=== PATIENT | female | born 1955 | race Caucasian/White ===

== ENCOUNTER 2018-05-24 17:42 | Inpatient (IN) | payer OTHER ==
[2018-05-24 17:42] VITALS: BMI 44.6
[2018-05-24 18:58] LABS: BASO # 0.1 K/uL (0.0-0.2); BASO % 0.8 % (0.0-2.0); EOS # 0.2 K/uL (0.0-0.7); EOS % 1.4 % (0.0-4.0); HEMOGLOBIN 14.9 g/dL (11.0-16.0); LYMPH # 3.6 K/uL (1.0-4.3); LYMPH % 26.5 % (20.0-40.0); MEAN CELL VOLUME 83.1 fL (81.0-99.0); MEAN CORPUSCULAR HEMOGLOBIN 26.9 pg (27.0-31.0); MEAN CORPUSCULAR HGB CONC 32.3 g/dL (33.0-37.0); MEAN PLATELET VOLUME 8.9 fL (7.2-11.7); MONO # 0.9 K/uL (0.0-0.8); MONO % 6.9 % (0.0-10.0); NEUT # 8.8 K/uL (1.8-7.0); NEUT % 64.4 % (50.0-75.0); NRBC % 0.2 % (0.0-2.0); RBC 5.54 Mil/uL (3.80-5.20); RED CELL DISTRIBUTION WIDTH 13.8 % (11.5-14.5); WHITE BLOOD COUNT 13.7 K/uL (4.8-10.8)
--- NOTE | 2018-05-24 19:03 | CP.PCM.HP ---
History of Present Illness - History of Present Illness History of Present Illness: Chief complaint: Shortness of breath and the chest tightness. HPI: 62-year-old female with a history of sleep apnea, recurrent sinusitis, history of colon polyp, hypertension, diabetes, noncompliance, obesity came to the emergency room with progressively worsening SOB. Patient came to my office 2 days ago at that time she was having severe shortness of breath, and also associated with chest tightness and pain radiating to the left side, and hypoxia. I advised the patient to go to the emergency room because of the acuteness of the disease. Patient also noted to have a uncontrolled diabetes her hemoglobin A1c 10.3, patient not following the recommendation properly, noncompliance with medications. She is afraid of taking sometimes medications. Patient came to the emergency room with a similar symptoms, shortness of breath and associated left arm discomfort. She is also having bilateral leg swelling, cough tenderness bilaterally present. Pain present. Difficult time in walking. Her functional capacity is limited because of the shortness of breath. Past medical history: Obstructive sleep apnea, recurrent sinusitis, colon polyp, hypertension, diabetes, hypercholesterolemia, obesity. Allergy to: Penicillin, Xanax and Motrin. Family history noncontributory Surgical history: None social history: Nonsmoker, nonalcoholic.working full-time Family history: Noncontributory Review of system: Patient has no headache. dental procedure which was done recently for a dental abscess. Chest discomfort, chest pain, shortness of breath, and tight chest. Cough noted. Abdominal discomfort negative. No leg swelling c/o of leg pain bilaterally especially in the calf region On examination: Vital signs noted. Normal. Chest good air entry bilateral wheezing noted Regular heart sound. Nontender abdomen. Pedal edema 1+ bilaterally noted Labs currently pending. EKG nonspecific. Assessment and plan: 62-year-old female with a history of diabetes, hypertension, hypercholesteremia, obesity, obesity hypoventilation, sleep apnea, uncontrolled diabetes. Patient having hemoglobin A1c 10 point now recently. Sleep apnea, on CPAP. Patient had a significant hypoxia. Now came to the emergency room with increasing shortness of breath, and hypoxia, underlying DVT, PE cannot be ruled out. Recommended CT angiogram. Cardiology evaluation. Will get the nuclear bstudy, stress test, echocardiogram, cardiac workup and cardiology evaluation. DVT GI prophylaxis and will follow-up the patient Present on Admission - Present on Admission Any Indicators Present on Admission: No History of DVT/PE: No History of Uncontrolled Diabetes: No Urinary Catheter: No Decubitus Ulcer Present: No Past Patient History - Infectious Disease Hx of Infectious Diseases: None - Past Medical History & Family History Past Medical History?: Yes - Past Social History Smoking Status: Former Smoker - CARDIAC Hx Cardiac Disorders: Yes Hx Hypertension: Yes (DOESN'T TAKE MEDS) - PULMONARY Hx Respiratory Disorders: Yes Hx Asthma: Yes (NO CURRENT MEDS) Hx Sleep Apnea: Yes (C-PAP) - NEUROLOGICAL Hx Neurological Disorder: Yes (NUMBNESS HANDS/POST CARPAL TUNNEL) - HEENT Hx HEENT Problems: Yes Other/Comment: GLASSES - ENDOCRINE/METABOLIC Hx Endocrine Disorders: Yes Hx Diabetes Mellitus Type 2: Yes (CONTROLLED BY DIET) - HEMATOLOGICAL/ONCOLOGICAL Hx Blood Disorders: Yes Hx Anemia: Yes - MUSCULOSKELETAL/RHEUMATOLOGICAL Hx Musculoskeletal Disorders: Yes Hx Back Pain: Yes (LUMBAR) - GASTROINTESTINAL Hx Gastrointestinal Disorders: Yes Hx Ulcer: Yes - GENITOURINARY/GYNECOLOGICAL Hx Genitourinary Disorders: Yes Hx Postmenopausal Bleeding: Yes - PSYCHIATRIC Hx Substance Use: No - SURGICAL HISTORY Hx Surgeries: Yes Hx Section: Yes Other/Comment: CARPAL TUNNER RELEASE - ANESTHESIA Hx Anesthesia: Yes Hx Anesthesia Reactions: No Meds Allergies/Adverse Reactions: Allergies Allergy/AdvReac Type Severity Reaction Status Date / Time alprazolam [From Xanax] Allergy Verified 05/24/18 17:48 ibuprofen [From Motrin] Allergy Verified 05/24/18 17:48 Penicillins Allergy Verified 05/24/18 17:48 Results - Vital Signs Recent Vital Signs: Last Vital Signs Temp 98.9 F 05/24/18 17:45 Pulse 110 H 05/24/18 17:45 Resp 18 05/24/18 17:45 BP 157/97 H 05/24/18 17:45 Pulse Ox 95 05/24/18 17:45 - Labs Result Diagrams: 05/26/18 08:27 05/26/18 08:27 Labs: Laboratory Results - last 24 hr 05/24/18 18:55 WBC 13.7 H RBC 5.54 H Hgb 14.9 Hct 46.1 MCV 83.1 MCH 26.9 L MCHC 32.3 L RDW 13.8 Plt Count 281 MPV 8.9 Neut % (Auto) 64.4 Lymph % (Auto) 26.5 Carroll % (Auto) 6.9 Eos % (Auto) 1.4 Baso % (Auto) 0.8 Neut # (Auto) 8.8 H Lymph # (Auto) 3.6 Carroll # (Auto) 0.9 H Eos # (Auto) 0.2 Baso # (Auto) 0.1
[2018-05-24 19:05] LABS: INR 1.1; PROTHROMBIN TIME 12.2 SECONDS (9.7-12.2)
[2018-05-24 19:12] LABS: ALB/GLOB RATIO 1.1 (1.0-2.1); ALBUMIN 4.3 g/dL (3.5-5.0); BLOOD UREA NITROGEN 20 mg/dL (7-17); CALCIUM 9.6 mg/dl (8.6-10.4); GFR NON-AFRICAN AMERICAN > 60
[2018-05-24 19:14] LABS: ALT/SGPT 48 U/L (9-52); AST/SGOT 46 U/L (14-36)
[2018-05-24 19:25] LABS: B-TYPE NATRIURETIC PEPTIDE 39.7 pg/mL (0-900)
--- NOTE | 2018-05-24 20:05 | C.PDOC ---
History Of Present Illness 62 y/o female, with history of hypertension and diabetes, was sent here by PCP Dr. Rm, because she is noncompliant with her blood pressure medications and was sent for evaluation for chest pain. Patient states she has had one month of intermittent pain and tightness in the center of her chest that worsens when breathing. States she also started having sharp pain on either side of breast for the past 2 weeks. Denies SOB, fever, cough, chills, recent travel, chronic swelling in bilateral extremities, orthopnea, N/V/D, abdominal pain, or any current pain. Time Seen by Provider: 05/24/18 18:48 Chief Complaint (Nursing): Medical Clearance History Per: Patient History/Exam Limitations: no limitations Onset/Duration Of Symptoms: Days Current Symptoms Are (Timing): Still Present Past Medical History Reviewed: Historical Data, Nursing Documentation, Vital Signs Vital Signs: Last Vital Signs Temp 98.9 F 05/24/18 17:45 Pulse 110 H 05/24/18 17:45 Resp 18 05/24/18 17:45 BP 157/97 H 05/24/18 17:45 Pulse Ox 95 05/24/18 17:45 - Medical History PMH: Anemia, Asthma (NO CURRENT MEDS), HTN (DOESN'T TAKE MEDS), Sleep Apnea (C- PAP) Surgical History: Endoscopy - [facility] Procedures D & C NEC (02/10/14) Family History: States: No Known Family Hx - Social History Hx Tobacco Use: No Hx Alcohol Use: Yes Hx Substance Use: No - Immunization History Hx Tetanus Toxoid Vaccination: No Hx Influenza Vaccination: No Hx Pneumococcal Vaccination: No Review Of Systems Except As Marked, All Systems Reviewed And Found Negative. Constitutional: Negative for: Fever, Chills Cardiovascular: Positive for: Chest Pain. Negative for: Orthopnea Respiratory: Negative for: Cough, Shortness of Breath Gastrointestinal: Negative for: Nausea, Vomiting, Abdominal Pain, Diarrhea Musculoskeletal: Positive for: Other (Breast pain) Physical Exam - Physical Exam Appears: Non-toxic, No Acute Distress, Other (Comfortable) Skin: Warm, Dry, No Jaundice Head: Atraumatic, Normacephalic Eye(s): bilateral: Normal Inspection, PERRL, EOMI Ear(s): Bilateral: Normal Nose: Normal Oral Mucosa: Moist Neck: Normal ROM, Supple Cardiovascular: Rhythm Regular, No Murmur Respiratory: No Rales, No Rhonchi, No Wheezing, Other (Normal inspiratory effort, Lungs clear to auscultation) Gastrointestinal/Abdominal: Soft, No Tenderness Extremity: Bilateral: Atraumatic, Normal Color And Temperature, Normal ROM, Other (Chronic bilateral nonpitting edema) Neurological/Psych: Oriented x3, Normal Speech Gait: Steady ED Course And Treatment - Laboratory Results Result Diagrams: 05/24/18 18:55 05/24/18 18:55 ECG Rhythm: Sinus Rhythm (Normal) Interpretation Of ECG: Normal intervals. Left axis deviation. No ST elevations or depressions. Rate From EC O2 Sat by Pulse Oximetry: 95 (RA) Pulse Ox Interpretation: Normal - CT Scan/US CT chest Other Rad Studies (CT/US): Read By Radiologist, Radiology Report Reviewed CT/US Interpretation: Impression: 1. Limited study, with poor contrast bolus within the pulmonary arteries. The central pulmonary arteries are free of embolism. However, the peripheral arterial structures cannot be evaluated on this study. Follow-up assessment as clinically indicated. 2. 0.6 x 0.7 cm nodule in the right middle lobe. By Fleischner Society protocol recommendations, a follow-up CT in 6-12 months followed by a CT at 18-24 months is suggested. 3. Interstitial changes in the lung bases bilaterally, most consistent with atelectasis, although infiltrate cannot completely be excluded. 4. Bibasilar confluent opacities may represent confluent fibrosis vs developing pneumonia. Medical Decision Making Medical Decision Making: Plan: --CT Chest --EKG --Bloodwork CTA ordered to rule out PE. 21:45 -- Spoke with Dr. Rm who asked for CTA results and agrees to admit patient. Dr. Rm states he spoke with book coverer Dr. Triana for stress test in the morning. 22:45 -- Spoke with Dr. Rm about CT negative results for PE. Dr. Rm stated he will determine whether to change patient's treatment. Disposition Counseled Patient/Family Regarding: Studies Performed, Diagnosis - Disposition Disposition: HOSPITALIZED Disposition Time: 21:45 Condition: STABLE - Clinical Impression Clinical Impression: Chest pain, Hyperglycemia - Scribe Statement The provider has reviewed the documentation as recorded by the Jessica Fontanez Provider Attestation: All medical record entries made by the Scribe were at my direction and personally dictated by me. I have reviewed the chart and agree that the record accurately reflects my personal performance of the history, physical exam, medical decision making, and the department course for this patient. I have also personally directed, reviewed, and agree with the discharge instructions and disposition.
[2018-05-24] MEDS ORDERED: Iodixanol 320 MG/ML 100 ML BOTTLE IV ONE (21:04)
[2018-05-24] MEDS ORDERED: Sodium Chloride 0.45% 1,000 ML IV SCH (21:45)
[2018-05-24] MEDS: (Novolin R) Insulin Human Regular 100 units/ml vial SC SCH (23:03)
[2018-05-24] MEDS ORDERED: Sodium Chloride 0.9% 1,000 ML ONE (23:10)
[2018-05-25] MEDS: (Novolin R) Insulin Human Regular 100 units/ml vial SC SCH ×4 (08:07→21:39)
[2018-05-25] MEDS ORDERED: Caffeine Citrated **INJ** 20 MG/ML IV ONE (09:05)
--- NOTE | 2018-05-25 09:36 | CT ---
Date of service: 05/24/2018 PROCEDURE: CT Chest with contrast (Pulmonary Angiogram) HISTORY: chest pain COMPARISON: Plain radiographs from 09/01/2015. TECHNIQUE: Axial computed tomography images were obtained of the chest in the pulmonary arterial phase of enhancement. Coronal and sagittal reformatted images were created and reviewed. Intravenous contrast dose: 100 mL Visipaque Radiation dose: Total exam DLP = 509.13 mGy-cm. This CT exam was performed using one or more of the following dose reduction techniques: Automated exposure control, adjustment of the mA and/or kV according to patient size, and/or use of iterative reconstruction technique. FINDINGS: PULMONARY ARTERIES: Nondiagnostic study for evaluation of pulmonary embolism due to missed bolus. AORTA: No acute findings. No thoracic aortic aneurysm. No aortic atherosclerotic calcification or mural plaque present. LUNGS: The lungs are clear. There is subsegmental atelectasis and mild interstitial fibrosis in the lower lobes. There is a 7 mm nodule in the right middle lobe (series 4, image 55). No mass or consolidation. There are no endobronchial lesions. PLEURAL SPACES: No effusion or pneumothorax. HEART: Unremarkable. No cardiomegaly. No significant pericardial effusion. LYMPH NODES: No lymphadenopathy. BONES, CHEST WALL: Within normal limits for the patient's age. No fracture or destructive lesion OTHER FINDINGS: Hepatosplenomegaly and fatty liver. Small sliding hiatal hernia. IMPRESSION: 1. Nondiagnostic study for evaluation of pulmonary embolism due to missed bolus. 2. 7 mm nodule in the right middle lobe. Follow-up CT scan in 6-12 month interval is recommended to assess stability. A preliminary report was provided by [facility].
[2018-05-25] MEDS: GlipiZIDE 10 mg SR Tab PO SCH (10:59)
[2018-05-25] MEDS ORDERED: Sodium Chloride 0.9% 1,000 ML IV ONE (16:10)
--- NOTE | 2018-05-26 05:35 | CARD ---
APPROVED REPORT Date of service: 05/25/2018 Protocol: LEXISCAN Test Type: LEXISCAN STRESS Test Indications: CHEST PAIN Medications: LIST Target HR: 160 bpm Resting ECG: normal Resting Heart Rate: 83 bpm Resting Blood Pressure: 134/80mmHg submaximum (85%): 136 bpm TEST SUMMARY PREINFSNHYPERV.02:[id number]/80.0. INFUSIONDOSE 100:[id number]/80.3. MNLDAESIU07:[id number]/80.2. PROCEDURE Pharmacologic stress testing was performed using 0.4mg per 5ml of regadenoson given intravenously over 7-10 seconds. POST EXERCISE Reason for Termination: Protocol Completed Target HR: No Max HR: 86 bpm 66% of Maximum Predicted HR: 160 bpm Exercise duration: 00:30 min:sec, 0 Stage Exercise capacity: 1.0METs Max Blood Pressure: 134/80mmHg Blood Pressure response to exercise: normal resting BP - appropriate response Heart Rate response to exercise: appropriate Chest Pain: No, none Angina index: 0 Arrhythmia: No, none ST Change: No, none Deviation: 0 mm INTERPRETATION Stress EKG Conclusion: NEGATIVE LEXISCAN STRESS TEST NORMAL BP RESPONSE TO LEXISCAN NUCLEAR STUDIES TO BE READ SEPARATELY EXAM: Myocardial Perfusion STRESS/REST Imaging Protocol The imaging protocol used to acquire images was Stress Tc-99m/rest Tc-99m 1 day Rest Spect myocardial perfusion imaging was performed in supine position 45 minutes following the injection of 25.0 mCi of Tc-99 Myoview. Gated Stress Spect was performed 45 minutes after intravenous 9.7 mCi Tc-99 Myoview injection. The images were gated to evaluate regional wall motion and calculate ventricular ejection fraction.Images were reconstructed using backfilter projection method in short horizontal and verticle long axis. Spect slices were generated. RESTING DATA EDV91.60xrGB9.30L/min ESV23.00mlMyocardial Jfps849.00g Av. Heart Rate78.00bpm EF75.00% STRESS DATA HWE776.06tvNX3.20L/min ESV35.00mlMyocardial Jezh600.00g EF65.00% Regional WT score at stress:2.00 Regional WM score at stress:0.00 Summed WT score at stress:4.00 Av. Heart Rate79.00bpmSummed WM score at stress:0.00 LV Perf. Quant 17 Seg. SSS15.00 17 Seg. SRS7.00 17 Seg. SDS8.00 Stress Defect Extent (% LAD)44.40Rest Defect Extent (% LAD)8.80Rev. Defect Extent (% LAD)28.80 Stress Defect Extent (% LCX)61.30Rest Defect Extent (% LCX)42.50Rev. Defect Extent (% LCX)50.00 Stress Defect Extent (% RCA)0.00Rest Defect Extent (% RCA)0.00Rev. Defect Extent (% RCA)0.00 Stress Defect Extent (% WILLIAM)35.40Rest Defect Extent (% WILLIAM)13.30Rev. Defect Extent (% WILLIAM)24.10 Other Information Quality:Good IMPRESSION Abnormal Myocardial Perfusion exercise stress study Left Ventricle LV Function:Left ventricle systolic function is normal. The Ejection Fraction is >55%. Conclusion 1. Large anterior wall stress induced perfusion defect. Abnormal stress test. Stress induced ischemia in the LAD territary 2. recommend cardiac cath
--- NOTE | 2018-05-26 06:05 | CP.PCM.CON ---
History of Present Illness - History of Present Illness History of Present Illness: Patient seen and evaluated Cardiac symptoms and risk factors Abnormal stress test For Cath in am Past Patient History - Infectious Disease Hx of Infectious Diseases: None - Past Medical History & Family History Past Medical History?: Yes - Past Social History Smoking Status: Former Smoker - CARDIAC Hx Hypertension: Yes (DOESN'T TAKE MEDS) - PULMONARY Hx Asthma: Yes (NO CURRENT MEDS) Hx Sleep Apnea: Yes (C-PAP) - NEUROLOGICAL Hx Neurological Disorder: Yes (NUMBNESS HANDS/POST CARPAL TUNNEL) - HEENT Hx HEENT Problems: Yes Other/Comment: GLASSES - ENDOCRINE/METABOLIC Hx Endocrine Disorders: Yes Hx Diabetes Mellitus Type 2: Yes (CONTROLLED BY DIET) - HEMATOLOGICAL/ONCOLOGICAL Hx Anemia: Yes - MUSCULOSKELETAL/RHEUMATOLOGICAL Hx Musculoskeletal Disorders: Yes Hx Back Pain: Yes (LUMBAR) Hx Falls: No - GASTROINTESTINAL Hx Gastrointestinal Disorders: Yes Hx Ulcer: Yes - GENITOURINARY/GYNECOLOGICAL Hx Genitourinary Disorders: Yes Hx Postmenopausal Bleeding: Yes - PSYCHIATRIC Hx Substance Use: No - SURGICAL HISTORY Hx Surgeries: Yes Hx Section: Yes Other/Comment: CARPAL TUNNER RELEASE - ANESTHESIA Hx Anesthesia: Yes Hx Anesthesia Reactions: No Hx Malignant Hyperthermia: No Has any member of the family had a problem w/ anesthesia?: No Meds Allergies/Adverse Reactions: Allergies Allergy/AdvReac Type Severity Reaction Status Date / Time alprazolam [From Xanax] Allergy Verified 05/24/18 17:48 ibuprofen [From Motrin] Allergy Verified 05/24/18 17:48 Penicillins Allergy Verified 05/24/18 17:48 - Medications Medications: Current Medications Acetaminophen (Tylenol 325mg Tab) 650 mg PO Q6 PRN PRN Reason: Headache Last Admin: 05/25/18 11:39 Dose: 650 mg Clindamycin HCl (Cleocin) 150 mg PO Q6 [facility]; Protocol Last Admin: 05/26/18 05:15 Dose: Not Given Glipizide (Glucotrol Xl) 10 mg PO DAILY [facility] Last Admin: 05/25/18 10:59 Dose: 10 mg Heparin Sodium (Porcine) (Heparin) 5,000 units SC Q8 [facility] Last Admin: 05/26/18 05:15 Dose: Not Given Hydrochlorothiazide (Microzide) 12.5 mg PO DAILY [facility] Last Admin: 05/25/18 16:13 Dose: 12.5 mg Sodium Chloride (Sodium Chloride 0.45%) 1,000 mls @ 50 mls/hr IV .Q20H [facility] Last Admin: 05/24/18 23:19 Dose: 50 mls/hr Sodium Chloride (Sodium Chloride 0.9%) 1,000 mls @ 70 mls/hr IV .[id number] [facility]: 05/26/18 06:27 Last Admin: 05/25/18 17:53 Dose: Not Given Insulin Human Regular (Novolin R) 0 unit SC ACHS [facility]; Protocol Last Admin: 05/25/18 21:39 Dose: Not Given Losartan Potassium (Cozaar) 50 mg PO DAILY [facility] Last Admin: 05/25/18 16:13 Dose: 50 mg Results - Vital Signs Recent Vital Signs: Last Vital Signs Temp 98.1 F 05/26/18 00:00 Pulse 75 05/26/18 00:05 Resp 20 05/26/18 00:00 BP 145/89 05/26/18 00:00 Pulse Ox 96 05/26/18 00:00 - Labs Result Diagrams: 05/24/18 18:55 05/24/18 18:55 Labs: Laboratory Results - last 24 hr 05/24/18 05/25/18 05/25/18 22:50 07:54 11:07 POC Glucose (mg/dL) 276 H 259 H 276 H 05/25/18 05/25/18 16:18 20:58 POC Glucose (mg/dL) 196 H 222 H
[2018-05-26] MEDS: (Novolin R) Insulin Human Regular 100 units/ml vial SC SCH ×2 (07:53→13:34)
[2018-05-26] MEDS ORDERED: Midazolam 2 MG/2 ML VIAL ONE (08:37)
[2018-05-26] MEDS ORDERED: Verapamil 2 ML ONE (08:37)
[2018-05-26] MEDS ORDERED: Lidocaine 2% MPF (5 ml) Inj ONE (08:37)
[2018-05-26] MEDS ORDERED: Iodixanol 320 MG/ML 200 ML BOTTLE IV ONE (08:38)
[2018-05-26] MEDS ORDERED: Nitroglycerin 50mg in D5W 50 MG/250 ML BOTTLE IV ONE (08:38)
[2018-05-26 08:39] LABS: BASO # 0.1 K/uL (0.0-0.2); BASO % 0.6 % (0.0-2.0); EOS # 0.2 K/uL (0.0-0.7); EOS % 2.5 % (0.0-4.0); HEMOGLOBIN 14.4 g/dL (11.0-16.0); LYMPH # 2.4 K/uL (1.0-4.3); LYMPH % 26.7 % (20.0-40.0); MEAN CELL VOLUME 83.8 fL (81.0-99.0); MEAN CORPUSCULAR HEMOGLOBIN 27.6 pg (27.0-31.0); MEAN PLATELET VOLUME 8.8 fL (7.2-11.7); MONO # 0.7 K/uL (0.0-0.8); NEUT # 5.6 K/uL (1.8-7.0); NEUT % 62.2 % (50.0-75.0); NRBC % 0.1 % (0.0-2.0); RBC 5.23 Mil/uL (3.80-5.20); RED CELL DISTRIBUTION WIDTH 13.4 % (11.5-14.5)
--- NOTE | 2018-05-26 09:16 | CP.PCM.PN ---
Subjective - Date & Time of Evaluation Date of Evaluation: 05/26/18 Time of Evaluation: 09:13 - Subjective Subjective: Patient s/p Cath 1. L Main: Patent 2. LAD/Diags: distal diffuse 50% diabetic pattern narrowing 3. L Cx/OM: Patent 4. RCA: Dominant and patent. ANITHA 2 flow 5. EF: 60%, EDP 18, No Diabetic pattern Non Obstructive CAD Recommend ASA, Statins, B Blockers, MIRANDA I Diet and exercise Good Diabetic control Weight reduction Objective - Vital Signs/Intake and Output Vital Signs (last 24 hours): Temp Pulse Resp BP Pulse Ox 98.1 F 75 20 145/89 96 05/26/18 00:00 05/26/18 00:05 05/26/18 00:00 05/26/18 00:00 05/26/18 00:00 Intake and Output: 05/26/18 05/26/18 06:59 18:59 Intake Total 50 Balance 50 - Medications Medications: Current Medications Acetaminophen (Tylenol 325mg Tab) 650 mg PO Q6 PRN PRN Reason: Headache Last Admin: 05/25/18 11:39 Dose: 650 mg Clindamycin HCl (Cleocin) 150 mg PO Q6 [facility]; Protocol Last Admin: 05/26/18 05:15 Dose: Not Given Glipizide (Glucotrol Xl) 10 mg PO DAILY [facility] Last Admin: 05/25/18 10:59 Dose: 10 mg Heparin Sodium (Porcine) (Heparin) 5,000 units SC Q8 [facility] Last Admin: 05/26/18 05:15 Dose: Not Given Hydrochlorothiazide (Microzide) 12.5 mg PO DAILY [facility] Last Admin: 05/25/18 16:13 Dose: 12.5 mg Sodium Chloride (Sodium Chloride 0.45%) 1,000 mls @ 50 mls/hr IV .Q20H [facility] Last Admin: 05/24/18 23:19 Dose: 50 mls/hr Insulin Human Regular (Novolin R) 0 unit SC ACHS [facility]; Protocol Last Admin: 05/26/18 07:53 Dose: Not Given Losartan Potassium (Cozaar) 50 mg PO DAILY [facility] Last Admin: 05/25/18 16:13 Dose: 50 mg - Labs Labs: 05/26/18 08:27 05/24/18 18:55 PT 12.2 SECONDS (9.7-12.2) 05/24/18 18:55 INR 1.1 05/24/18 18:55 APTT 38 SECONDS (21-34) H 05/24/18 18:55
[2018-05-26 09:33] LABS: ALB/GLOB RATIO 1.2 (1.0-2.1); ALBUMIN 4.1 g/dL (3.5-5.0); ALT/SGPT 38 U/L (9-52); AST/SGOT 34 U/L (14-36); BLOOD UREA NITROGEN 14 mg/dL (7-17); CALCIUM 9.3 mg/dl (8.6-10.4); GFR NON-AFRICAN AMERICAN > 60
[2018-05-26] MEDS ORDERED: Iohexol 350mg/ml 100 ML ONE (12:23)
--- NOTE | 2018-05-26 12:44 | CP.PCM.PN ---
Subjective - Date & Time of Evaluation Date of Evaluation: 05/25/18 Time of Evaluation: 12:42 - Subjective Subjective: Patient still having symptoms of chest tightness. Bilateral rib pain noted. Patient today underwent stress test. I spoke to the air hose coupler. Abnormal stress test, scheduled to have angiogram tomorrow. Vital signs stable. Blood pressure is noted to be stable. Elevated sugar noted. Will continue the current treatment. Objective - Vital Signs/Intake and Output Vital Signs (last 24 hours): Temp Pulse Resp BP Pulse Ox 98.1 F 75 20 145/89 96 05/26/18 00:00 05/26/18 00:05 05/26/18 00:00 05/26/18 00:00 05/26/18 00:00 Intake and Output: 05/26/18 05/26/18 06:59 18:59 Intake Total 50 Balance 50 - Medications Medications: Current Medications Acetaminophen (Tylenol 325mg Tab) 650 mg PO Q6 PRN PRN Reason: Headache Last Admin: 05/25/18 11:39 Dose: 650 mg Clindamycin HCl (Cleocin) 150 mg PO Q6 [facility]; Protocol Last Admin: 05/26/18 05:15 Dose: Not Given Clopidogrel Bisulfate (Plavix) 75 mg PO DAILY [facility] Glipizide (Glucotrol Xl) 10 mg PO DAILY [facility] Last Admin: 05/25/18 10:59 Dose: 10 mg Heparin Sodium (Porcine) (Heparin) 5,000 units SC Q8 [facility] Last Admin: 05/26/18 05:15 Dose: Not Given Hydrochlorothiazide (Microzide) 12.5 mg PO DAILY [facility] Last Admin: 05/25/18 16:13 Dose: 12.5 mg Sodium Chloride (Sodium Chloride 0.45%) 1,000 mls @ 50 mls/hr IV .Q20H [facility] Last Admin: 05/24/18 23:19 Dose: 50 mls/hr Insulin Human Regular (Novolin R) 0 unit SC ACHS [facility]; Protocol Last Admin: 05/26/18 07:53 Dose: Not Given Losartan Potassium (Cozaar) 50 mg PO DAILY [facility] Last Admin: 05/25/18 16:13 Dose: 50 mg Losartan Potassium (Cozaar) 25 mg PO DAILY [facility] Rosuvastatin Calcium (Crestor) 10 mg PO HS [facility] - Labs Labs: 05/26/18 08:27 05/26/18 08:27 PT 12.2 SECONDS (9.7-12.2) 05/24/18 18:55 INR 1.1 05/24/18 18:55 APTT 38 SECONDS (21-34) H 05/24/18 18:55
[2018-05-26 13:05] VITALS: BP 161/103; RESP 18; TEMP 97.9; O2SAT 95
[2018-05-26] MEDS: GlipiZIDE 10 mg SR Tab PO SCH (13:35)
--- NOTE | 2018-05-26 14:30 | CP.PCM.PN ---
Subjective - Date & Time of Evaluation Date of Evaluation: 05/26/18 Time of Evaluation: 14:30 - Subjective Subjective: PATIENT SEEN AND EXAMINED AT THE BEDSIDE Objective - Vital Signs/Intake and Output Vital Signs (last 24 hours): Temp Pulse Resp BP Pulse Ox 97.9 F 82 18 161/103 H 95 05/26/18 13:04 05/26/18 13:04 05/26/18 13:04 05/26/18 13:04 05/26/18 13:04 Intake and Output: 05/26/18 05/26/18 06:59 18:59 Intake Total 50 Balance 50 - Medications Medications: Current Medications Acetaminophen (Tylenol 325mg Tab) 650 mg PO Q6 PRN PRN Reason: Headache Last Admin: 05/25/18 11:39 Dose: 650 mg Clindamycin HCl (Cleocin) 150 mg PO Q6 [facility]; Protocol Last Admin: 05/26/18 13:32 Dose: 150 mg Clopidogrel Bisulfate (Plavix) 75 mg PO DAILY [facility] Last Admin: 05/26/18 13:32 Dose: 75 mg Glipizide (Glucotrol Xl) 10 mg PO DAILY [facility] Last Admin: 05/26/18 13:35 Dose: Not Given Heparin Sodium (Porcine) (Heparin) 5,000 units SC Q8 [facility] Last Admin: 05/26/18 13:33 Dose: 5,000 units Hydrochlorothiazide (Microzide) 12.5 mg PO DAILY [facility] Last Admin: 05/26/18 13:32 Dose: 12.5 mg Sodium Chloride (Sodium Chloride 0.45%) 1,000 mls @ 50 mls/hr IV .Q20H [facility] Last Admin: 05/24/18 23:19 Dose: 50 mls/hr Insulin Human Regular (Novolin R) 0 unit SC ACHS [facility]; Protocol Last Admin: 05/26/18 13:34 Dose: Not Given Losartan Potassium (Cozaar) 25 mg PO DAILY [facility] Rosuvastatin Calcium (Crestor) 10 mg PO HS [facility] - Labs Labs: 05/26/18 08:27 05/26/18 08:27 PT 12.2 SECONDS (9.7-12.2) 05/24/18 18:55 INR 1.1 05/24/18 18:55 APTT 38 SECONDS (21-34) H 05/24/18 18:55 Assessment and Plan - Assessment and Plan (Free Text) Assessment: FOLLOW UP WITH DR REBOLLAR IN HIS OFFICE ----CALL FOR APPOINTMENT CONTINUE HOME MEDICATION NEW PRESCRIPTION GIVEN PLAVIX 75 MG PO DAILY METOPROLOL 25 MG PO DAILY [facility] TOLER[facility] CALL DR REBOLLAR OR GO TO THE EMERGENCY ROOM IF SYMPTOM RETURN OR WORSENING
[2018-05-26 14:49] VITALS: PULSE 94
--- NOTE | 2018-05-26 18:57 | CP.PCM.DIS ---
Provider - Provider Date of Admission: 05/25/18 16:13 Attending physician: Nettie Rm MD Time Spent in preparation of Discharge (in minutes): 45 Hospital Course - Lab Results Lab Results: Most Recent Lab Values WBC 9.0 K/uL (4.8-10.8) 05/26/18 08:27 RBC 5.23 Mil/uL (3.80-5.20) H 05/26/18 08: Hgb 14.4 g/dL (11.0-16.0) 05/26/18 08: Hct 43.8 % (34.0-47.0) 05/26/18 08: MCV 83.8 fL (81.0-99.0) 05/26/18 08: MCH 27.6 pg (27.0-31.0) 05/26/18 08: MCHC 33.0 g/dL (33.0-37.0) 05/26/18 08: RDW 13.4 % (11.5-14.5) 05/26/18 08: Plt Count 240 K/uL (130-400) 05/26/18 08: MPV 8.8 fL (7.2-11.7) 05/26/18 08: Neut % (Auto) 62.2 % (50.0-75.0) 05/26/18 08: Lymph % (Auto) 26.7 % (20.0-40.0) 05/26/18 08:27 Jennings % (Auto) 8.0 % (0.0-10.0) 05/26/18 08: Eos % (Auto) 2.5 % (0.0-4.0) 05/26/18 08: Baso % (Auto) 0.6 % (0.0-2.0) 05/26/18 08: Neut # (Auto) 5.6 K/uL (1.8-7.0) 05/26/18 08:27 Lymph # (Auto) 2.4 K/uL (1.0-4.3) 05/26/18 08:27 Jennings # (Auto) 0.7 K/uL (0.0-0.8) 05/26/18 08:27 Eos # (Auto) 0.2 K/uL (0.0-0.7) 05/26/18 08:27 Baso # (Auto) 0.1 K/uL (0.0-0.2) 05/26/18 08:27 PT 12.2 SECONDS (9.7-12.2) 05/24/18 18:55 INR 1.1 05/24/18 18:55 APTT 38 SECONDS (21-34) H 05/24/18 18:55 Sodium 138 mmol/L (132-148) 05/26/18 08:27 Potassium 4.5 mmol/L (3.6-5.2) 05/26/18 08:27 Chloride 97 mmol/L (98-107) L 05/26/18 08:27 Carbon Dioxide 31 mmol/L (22-30) H 05/26/18 08:27 Anion Gap 14 (10-20) 05/26/18 08:27 BUN 14 mg/dL (7-17) 05/26/18 08:27 Creatinine 0.7 mg/dL (0.7-1.2) 05/26/18 08:27 Est GFR ( Amer) > 60 05/26/18 08:27 Est GFR (Non-Af Amer) > 60 05/26/18 08:27 POC Glucose (mg/dL) 132 mg/dL (65-110) H 05/26/18 13:33 Random Glucose 251 mg/dL (65-105) H 05/26/18 08:27 Calcium 9.3 mg/dl (8.6-10.4) 05/26/18 08:27 Total Bilirubin 0.6 mg/dL (0.2-1.3) 05/26/18 08:27 AST 34 U/L (14-36) 05/26/18 08:27 ALT 38 U/L (9-52) 05/26/18 08:27 Alkaline Phosphatase 94 U/L (38-126) 05/26/18 08:27 Troponin I < 0.0120 ng/mL (0.00-0.120) 05/24/18 18:55 NT-Pro-B Natriuret Pep 39.7 pg/mL (0-900) 05/24/18 18:55 Total Protein 7.6 g/dL (6.3-8.3) 05/26/18 08:27 Albumin 4.1 g/dL (3.5-5.0) 05/26/18 08:27 Globulin 3.5 gm/dL (2.2-3.9) 05/26/18 08:27 Albumin/Globulin Ratio 1.2 (1.0-2.1) 05/26/18 08:27 - Hospital Course Hospital Course: Chief complaint: Shortness of breath and the chest tightness. HPI: 62-year-old female with a history of sleep apnea, recurrent sinusitis, history of colon polyp, hypertension, diabetes, noncompliance, obesity came to the emergency room with progressively worsening SOB. Patient came to my office 2 days ago at that time she was having severe shortness of breath, and also associated with chest tightness and pain radiating to the left side, and hypoxia. I advised the patient to go to the emergency room because of the acuteness of the disease. Patient also noted to have a uncontrolled diabetes her hemoglobin A1c 10.3, patient not following the recommendation properly, noncompliance with medications. She is afraid of taking sometimes medications. Patient came to the emergency room with a similar symptoms, shortness of breath and associated left arm discomfort. She is also having bilateral leg swelling, cough tenderness bilaterally present. Pain present. Difficult time in walking. Her functional capacity is limited because of the shortness of breath. Past medical history: Obstructive sleep apnea, recurrent sinusitis, colon polyp, hypertension, diabetes, hypercholesterolemia, obesity. Allergy to: Penicillin, Xanax and Motrin. Family history noncontributory Surgical history: None social history: Nonsmoker, nonalcoholic.working full-time Family history: Noncontributory Review of system: Patient has no headache. dental procedure which was done recently for a dental abscess. Chest discomfort, chest pain, shortness of breath, and tight chest. Cough noted. Abdominal discomfort negative. No leg swelling c/o of leg pain bilaterally especially in the calf region On examination: Vital signs noted. Normal. Chest good air entry bilateral wheezing noted Regular heart sound. Nontender abdomen. Pedal edema 1+ bilaterally noted Labs currently pending. EKG nonspecific. Assessment and plan: 62-year-old female with a history of diabetes, hypertension, hypercholesteremia, obesity, obesity hypoventilation, sleep apnea, uncontrolled diabetes. Patient having hemoglobin A1c 10 point now recently. Sleep apnea, on CPAP. Patient had a significant hypoxia. Now came to the emergency room with increasing shortness of breath, and hypoxia, underlying DVT, PE cannot be ruled out. Recommended CT angiogram. Cardiology evaluation. Will get the nuclear bstudy, stress test, echocardiogram, cardiac workup and cardiology evaluation. DVT GI prophylaxis and will follow-up the patient Course in the Hospital: Patient underwent a CT scan of the chest with contrast. There was no evidence of tumor embolism. Patient has atelectatic lungs. Also some mild fibrotic changes in the basal lung robles noted. The patient continues to have a symptoms of chest discomfort. Patient underwent a stress test. There was an abnormal it in the anterior wall motion. Patient underwent angiogram of the coronaries, patient has a 50% occlusion of the LAD. Otherwise patient is feeling well. Patient has a nonobstructive coronary disease. Medical management advised including weight reduction, glucose control, blood pressure control. Patient will need antiplatelets and statin. She will be discharged home. She will follow up as an outpatient. BiPAP advised will follow the patient Discharge Plan - Discharge Medications Prescriptions: Rosuvastatin Calcium [Crestor] 10 mg PO HS 30 Days tab Metoprolol Tartrate 25 mg PO DAILY 30 Days tablet Clopidogrel [Plavix] 75 mg PO DAILY 30 Days tab - Follow Up Plan Condition: STABLE Disposition: HOME/ ROUTINE Instructions: Chest Pain (DC), Hyperglycemia, Adult (DC) Additional Instructions: FOLLOW UP WITH DR RM IN HIS OFFICE ----CALL FOR APPOINTMENT CONTINUE HOME MEDICATION NEW PRESCRIPTION GIVEN PLAVIX 75 MG PO DAILY METOPROLOL 25 MG PO DAILY ACTIVITY TOLERATED CALL DR RM OR GO TO THE EMERGENCY ROOM IF SYMPTOM RETURN OR WORSENING Referrals: Tavo Triana MD [Staff Provider] - Nettie Rm MD [Staff Provider] -
--- NOTE | 2018-05-27 18:20 | CARD ---
APPROVED REPORT Date of service: 05/25/2018 EXAM: Two-dimensional and M-mode echocardiogram with Doppler and color Doppler. Other Information Quality : AverageRhythm : NSR INDICATION Chest Pain RISK FACTORS Hypertension Hyperlipidemia 2D DIMENSIONS LA Tivxox95 (18-58mL) M-Mode DIMENSIONS Left Atrium (MM)3.84 (2.5-4.0cm)IVSd1.29 (0.7-1.1cm) Aortic Root2.99 (2.2-3.7cm)LVDd3.80 (4.0-5.6cm) Aortic Cusp Exc.1.40 (1.5-2.0cm)PWd1.29 (0.7-1.1cm) FS (%) 30 %LVDs2.66 (2.0-3.8cm) LVEF (%)58 (>50%) Aortic Valve AoV Peak Zxewmapp855.8cm/Joaquim Peak GR.10mmHg Mitral Valve MV E Rjruevos89.6cm/sMV A Wldckrfd149.0cm/sE/A ratio0.8 TDI Lateral E' Peak V11.19cm/sMedial E' Peak V6.67cm/sE/Lateral E'7.3 E/Medial E'12.2 Tricuspid Valve TR Peak Ltyeilbt601ye/sTR Peak Gr.24yaHpREMY00kzTs LEFT VENTRICLE The left ventricle is normal size. There is normal left ventricular wall thickness. The left ventricular function is normal. The left ventricular ejection fraction is within the normal range. There is normal LV segmental wall motion. Transmitral Doppler flow pattern is abnormal. RIGHT VENTRICLE The right ventricle is normal size. ATRIA The left atrium size is normal. The right atrium size is normal. AORTIC VALVE The aortic valve is normal in structure. MITRAL VALVE The mitral valve is normal in structure. TRICUSPID VALVE There is mild tricuspid regurgitation. <Conclusion> Normal LV systolic function. Diastolic dysfunction. Normal chamber size. Mild TR.
== END 2018-05-26 15:10 | disposition home or self-care (01) | DRG 287 ==
LOC: C.ER 17:42 → C.9E 21:46 → C.5S 05-25 06:12 → OBSVTOIN 05-25 16:13 → C.5S 05-26 08:46
PROVIDERS: ADMIT Internal Medicine; ATTEND Internal Medicine
PROC: 4A023N7 Measurement of Cardiac Sampling and Pressure, Left Heart, Percutaneous Approach (ICD-10-PCS; principal; 2018-05-26)
PROC: B2151ZZ Fluoroscopy of Left Heart using Low Osmolar Contrast (ICD-10-PCS; 2018-05-26)
DX: I25.10 Atherosclerotic heart disease of native coronary artery without angina pectoris (principal); E66.2 Morbid (severe) obesity with alveolar hypoventilation; Z68.41 Body mass index [BMI] 40.0-44.9, adult; I10 Essential (primary) hypertension; G47.33 Obstructive sleep apnea (adult) (pediatric); E11.65 Type 2 diabetes mellitus with hyperglycemia; J32.9 Chronic sinusitis, unspecified; J45.909 Unspecified asthma, uncomplicated; R09.02 Hypoxemia; Z87.891 Personal history of nicotine dependence; Z91.14 Patient's other noncompliance with medication regimen; E78.00 Pure hypercholesterolemia, unspecified